=== PATIENT | female | born 1990 | race African-American/Black ===

== ENCOUNTER 2025-05-19 19:37 | Emergency (ER) | payer OTHER ==
[~2025-05-19] VITALS: Ht 154.9 cm; Wt 39.5 kg
[2025-05-19 19:47] VITALS: BP 165/116; PULSE 118; RESP 18; TEMP 98.1; O2SAT 100
[2025-05-19 20:23] LABS: BASOPHILS % (AUTO) 0.5 % (0.0-2.0); EOSINOPHILS % (AUTO) 0.1 % (1.0-6.0); HEMATOCRIT 36.6 % (36-46); HEMOGLOBIN 12.4 g/dL (12.0-16.0); LYMPHOCYTES # (AUTO) 2.5 K/uL (1.0-4.8); LYMPHOCYTES % (AUTO) 68.8 % (22.0-44.0); MEAN CORPUSCULAR HEMOGLOBIN 32.9 pg (26.0-34.0); MEAN CORPUSCULAR HGB CONC 33.8 G/dL (31.0-37.0); MEAN CORPUSCULAR VOLUME 97 fL (80-100); MONOCYTES # (AUTO) 0.2 K/uL (0.1-1.0); MONOCYTES % (AUTO) 6.8 % (2.0-9.0); NEUTROPHILS # (AUTO) 0.9 K/uL (1.8-7.7); NEUTROPHILS % (AUTO) 23.8 % (40.0-70.0); PLATELET COUNT (AUTO) 191 K/uL (150-450); RED BLOOD CELL COUNT(AUTO) 3.76 MIL/uL (4.00-5.20); RED CELL DISTRIBUTION WIDTH 17.7 % (11.5-14.5); WHITE BLOOD COUNT (AUTO) 3.6 K/uL (4.5-11.0)
[2025-05-19 20:28] LABS: COVID AG,FIA SOURCE NASAL SWAB
[2025-05-19 20:33] LABS: ANION GAP 7 mmol/L (8-16); CALCIUM, TOTAL 8.8 mg/dL (8.8-10.5); CARBON DIOXIDE 31 mmol/L (22-29); CHLORIDE 103 mmol/L (98-107); CREATININE 0.75 mg/dL (0.60-1.30); GLOMERULAR FILTR. RATE CALC > 60 mL/min (>60); GLUCOSE,RANDOM 112 mg/dL (70-110); POTASSIUM 3.8 mmol/L (3.5-5.1); SODIUM SERUM 141 mmol/L (136-145); UREA NITROGEN, BLOOD 6 mg/dL (7-18)
[2025-05-19 20:50] LABS: SARS-COV2 (COVID) ANTIGEN,FIA Negative (Negative)
[2025-05-19 20:51] LABS: INFLUENZA TYPE A NEGATIVE FOR TYPE A (NEGATIVE); INFLUENZA TYPE B NEGATIVE FOR TYPE B (NEGATIVE)
[2025-05-19 21:10] LABS: APPEARANCE,URINE CLEAR (CLEAR); BILIRUBIN,URINE NEGATIVE (NEGATIVE); COLOR,URINE LIGHT YELLOW (YELLOW); GLUCOSE, URINE (UA) NEGATIVE (NEGATIVE); KETONES,URINE NEGATIVE (NEGATIVE); LEUKOCYTE ESTERASE ,URINE NEGATIVE (NEGATIVE); NITRATE,URINE NEGATIVE (NEGATIVE); OCCULT BLOOD,URINE MODERATE (NEGATIVE); PH,URINE 6.5 (5.0-8.0); PH,URINE DRUG SCREEN 6.5 (5.0-8.0); PROTEIN,URINE NEGATIVE (NEGATIVE); SPECIFIC GRAVITIY, URINE 1.009 (1.003-1.030); UROBILINOGEN,URINE <=1.0 mg/dL (<=1.0)
[2025-05-19 21:18] LABS: AMPHET/METH SCREEN,URINE NEGATIVE (NEGATIVE); BARBITURATE SCREEN, URINE NEGATIVE (NEGATIVE); BENZODIAZEPINES SCREEN,URINE NEGATIVE (NEGATIVE); CANNABINOID SCREEN,URINE NEGATIVE (NEGATIVE); COCAINE SCREEN,URINE NEGATIVE (NEGATIVE); METHADONE SCREEN, URINE NEGATIVE (NEGATIVE); OPIATE SCREEN,URINE NEGATIVE (NEGATIVE); PHENCYCLIDINE SCREEN,URINE NEGATIVE (NEGATIVE)
[2025-05-19] MEDS ORDERED: AMLO5TAB66 PO (21:21)
[2025-05-19] MEDS ORDERED: THIA100T92 PO (21:21)
[2025-05-19] MEDS ORDERED: LOSA-381 PO (21:21)
[2025-05-19] MEDS ORDERED: PANT40TA54 PO (21:21)
[2025-05-19] MEDS ORDERED: MULT-1366 PO (21:21)
[2025-05-19] MEDS ORDERED: ONDA-243 PO (21:21)
[2025-05-19] MEDS ORDERED: GUAI5SYR PO (21:21)
[2025-05-19] MEDS ORDERED: AMOX500T2 PO (21:21)
[2025-05-19] MEDS ORDERED: AZIT-164 PO (21:21)
[2025-05-19] MEDS ORDERED: FOLI-130 PO (21:21)
[2025-05-19] MEDS ORDERED: CEFU500T67 PO (21:21)
[2025-05-19 21:23] LABS: ALCOHOL, URINE DRUG SCREEN POSITIVE (NEGATIVE)
[2025-05-19 21:29] LABS: RBC MORPHOLOGY COMMENT ABNORMAL RBC MORPH
[2025-05-19 22:05] LABS: BACTERIA,URINE Rare /HPF (None Seen); SQUAMOUS EPITHELIAL CELL,UR Few /LPF (None Seen); WBC,URINE 0-2 /HPF (0-5)
== END 2025-05-19 21:36 | disposition home or self-care (01) ==
LOC: EMS 19:55
DX: J40 Bronchitis, not specified as acute or chronic (principal); Z20.822 Contact with and (suspected) exposure to COVID-19; Z79.899 Other long term (current) drug therapy
CPT/HCPCS: 80048; 80307; 81001; 85025; 87804; 99283